=== PATIENT | female | born 1935 | race Caucasian/White ===

== ENCOUNTER 2017-05-07 06:55 | Day surgery (SDC) | payer MEDICARE, BC ==
[~2017-05-07] VITALS: Ht 163.8 cm; Wt 86.0 kg
[2017-05-07 07:22] VITALS: BP 134/91
[2017-05-07] MEDS ORDERED: LACTATED RINGERS 1,000 ML IV SCH (07:23)
[2017-05-07] MEDS ORDERED: BUPIVACAINE/PF 0.5% ONE (07:52)
[2017-05-07] MEDS ORDERED: PROTAMINE SULFATE 10 MG/ML, 5ML ONE (07:52)
[2017-05-07] MEDS ORDERED: THROMBIN 5,000 UNIT VIAL TP ONE (07:52)
[2017-05-07] MEDS ORDERED: HEPARIN 1,000 UNITS/ML, 10ML ONE (07:53)
[2017-05-07] MEDS ORDERED: MIDAZOLAM 1 MG/ML, 2ML ONE (07:54)
[2017-05-07] MEDS ORDERED: FENTANYL PF 250 MCG/5ML ONE (07:54)
[2017-05-07] MEDS ORDERED: SODIUM CHLORIDE 0.9% 1,000 ML IV SCH (08:11)
[2017-05-07] MEDS ORDERED: LYSI100010 PO (08:36)
[2017-05-07] MEDS ORDERED: normodyne PO (08:36)
[2017-05-07] MEDS ORDERED: HYDR-3342 PO (08:36)
[2017-05-07] MEDS ORDERED: ALLO100T30 PO (08:36)
[2017-05-07] MEDS ORDERED: IRON1TAB60 PO (08:36)
[2017-05-07] MEDS ORDERED: CHOL5000 PO (08:36)
[2017-05-07] MEDS ORDERED: ANAS1TAB3 PO (08:36)
[2017-05-07] MEDS ORDERED: LEVO125T63 PO (08:36)
[2017-05-07] MEDS ORDERED: AMLO10TA2 PO (08:36)
[2017-05-07] MEDS ORDERED: ATOR10TA PO (08:36)
[2017-05-07] MEDS ORDERED: FURO20TA3 PO (08:36)
[2017-05-07] MEDS ORDERED: GABA600T2 PO (08:36)
[2017-05-07] MEDS ORDERED: ONDANSETRON 2MG/ML, 2ML ONE (09:59)
[2017-05-07] MEDS ORDERED: NEOSTIGMINE 1 MG/ML, 10ML ONE (09:59)
[2017-05-07] MEDS ORDERED: PROPOFOL 10 MG/ML, 20ML ONE (09:59)
[2017-05-07] MEDS ORDERED: CEFAZOLIN 1,000 MG ONE (09:59)
[2017-05-07] MEDS ORDERED: DEXAMETHASONE 4 MG/ML, 1ML ONE (09:59)
[2017-05-07] MEDS ORDERED: SUCCINYLCHOLINE 20 MG/ML, 10ML ONE (09:59)
[2017-05-07] MEDS ORDERED: GLYCOPYRROLATE 0.2MG/1ML, 5ML ONE (09:59)
[2017-05-07] MEDS ORDERED: ROCURONIUM 10 MG/ML,10ML ONE (09:59)
[2017-05-07] MEDS ORDERED: HYDROcodone/APAP 7.5-325MG/15ML UDC PO PRN (10:00)
[2017-05-07] MEDS ORDERED: OXYcodone 5 MG/5 ML ORAL.SOL UDC PO PRN (10:00)
[2017-05-07] MEDS ORDERED: ACETAMINOPHEN 325 MG TABLET PO PRN (10:00)
[2017-05-07] MEDS ORDERED: HYDROmorphone 1 MG/ML, 1ML IV PRN (10:00)
[2017-05-07] MEDS ORDERED: ONDANSETRON 2MG/ML, 2ML IVPush PRN (10:00)
[2017-05-07] MEDS ORDERED: OXYcodone 5 MG/5 ML ORAL.SOL UDC ONE (10:47)
[2017-05-07] MEDS: FENTANYL PF 100 MCG/2ML IV PRN ×3 (10:52→11:22)
[2017-05-07] MEDS ORDERED: FENTANYL PF 100 MCG/2ML ONE (10:52)
== END 2017-05-07 13:45 ==
LOC: OUT 06:55
PROVIDERS: ATTEND Surgery Vascular Surgery
DX: I12.0 Hypertensive chronic kidney disease with stage 5 chronic kidney disease or end stage renal disease (principal); N18.6 End stage renal disease; Z88.5 Allergy status to narcotic agent
CPT/HCPCS: 36415; 36821; 49324; 80047; 93005; C1750; J0330; J0690; J1100; J1644; J2405; J2704; J2720; J3010; J3490; J7030; J2250; J2710

== ENCOUNTER 2019-05-27 05:39 | Day surgery (SDC) | payer MEDICARE, OTHER ==
[~2019-05-27] VITALS: Ht 162.6 cm; Wt 77.1 kg
[~2019-05-27 05:39] MED LIST: ALLO100T30 PO; AMLO10TA8 PO; ANAS1TAB49 PO; ATOR10TA PO; CARV6.252 PO; CELE200C PO; CHOL5000 PO; ERGO500017 PO; FOLI0.8T22 PO; FURO20TA3 PO; GABA600T7 PO; HYDR-3342 PO; IRON1TAB60 PO; LEVO125T63 PO; LYSI100010 PO; OMEP20TA62 PO; PHOSPHORUS BINDER PO; normodyne PO
[2019-05-27 06:58] VITALS: BP 136/65
[2019-05-27] MEDS ORDERED: LIDOCAINE 1%-EPI 1:100K, 20ML ONE (07:00)
[2019-05-27] MEDS ORDERED: BUPIVACAINE/PF 0.5% ONE (07:00)
[2019-05-27] MEDS ORDERED: SODIUM CHLORIDE 0.9% 1,000 ML IV SCH (07:00)
[2019-05-27] MEDS ORDERED: EPINEPHRINE 1 MG/ML, 1ML ONE (07:00)
[2019-05-27] MEDS ORDERED: FENTANYL PF 250 MCG/5ML ONE (07:18)
[2019-05-27] MEDS ORDERED: DEXAMETHASONE 4 MG/ML, 1ML ONE (07:18)
[2019-05-27] MEDS ORDERED: SUCCINYLCHOLINE 20 MG/ML, 10ML ONE (07:21)
[2019-05-27] MEDS ORDERED: PROPOFOL 10 MG/ML, 20ML ONE (07:52)
[2019-05-27] MEDS ORDERED: EPHEDRINE 50 MG/ML, 1ML ONE (07:52)
[2019-05-27] MEDS ORDERED: CEFAZOLIN 1,000 MG ONE (07:52)
[2019-05-27] MEDS ORDERED: ONDANSETRON 2MG/ML, 2ML IV PRN (09:00)
[2019-05-27] MEDS ORDERED: ONDANSETRON ODT 8 MG PO PRN (09:00)
[2019-05-27] MEDS ORDERED: PROMETHAZINE 12.5 MG SUPP PR PRN (09:00)
[2019-05-27] MEDS ORDERED: MIDAZOLAM 1 MG/ML, 2ML IV PRN (09:00)
[2019-05-27] MEDS ORDERED: EPHEDRINE 50 MG/ML, 1ML IVPush PRN (09:00)
[2019-05-27] MEDS ORDERED: PROMETHAZINE 25 MG/ML, 1ML IV PRN (09:00)
[2019-05-27] MEDS ORDERED: HALOPERIDOL 5 MG/ML IV PRN (09:00)
[2019-05-27] MEDS ORDERED: ALBUTEROL SULFATE 2.5 MG/3 ML NPPB PRN (09:00)
[2019-05-27] MEDS ORDERED: DIAZEPAM 5 MG/ML, 2ML IVPush PRN (09:00)
[2019-05-27] MEDS ORDERED: hydrALAzine 20 MG/ML, 1ML IV PRN (09:00)
[2019-05-27] MEDS ORDERED: FENTANYL PF 100 MCG/2ML IV PRN (09:00)
[2019-05-27] MEDS ORDERED: HYDROmorphone 2 MG/ML, 1ML IVPush PRN (09:00)
[2019-05-27] MEDS ORDERED: LABETALOL 5MG/ML, 20ML IV PRN (09:00)
[2019-05-27] MEDS ORDERED: MEPERIDINE/PF 25MG/ML,1ML IVPush PRN (09:00)
[2019-05-27] MEDS ORDERED: OXYcodone 5 MG/5 ML ORAL.SOL UDC PO PRN (09:00)
[2019-05-27] MEDS ORDERED: ONDANSETRON 2MG/ML, 2ML ONE (09:16)
[2019-05-27 09:41] LABS: INTERNATIONAL NORMALIZED RATIO 0.89 (0.93-1.1); PROTHROMBIN TIME 9.4 Seconds (9.6-11.5)
[2019-05-27 09:44] LABS: ALANINE AMINOTRANSFERASE 14 U/L (12-78); ALBUMIN 2.9 g/dL (3.4-5.0); ANION GAP 11 mmol/L (5-15); CALCIUM 8.7 mg/dL (8.5-10.1); CHLORIDE 91 mmol/L (98-107); CREATININE 6.49 mg/dL (0.55-1.02)
[2019-05-27 09:46] LABS: ALKALINE PHOSPHATASE 123 U/L (45-117)
== END 2019-05-27 12:10 | disposition home or self-care (01) ==
LOC: OUT 05:39
PROVIDERS: ATTEND Orthopaedic Surgery Orthopaedic Surgery of the Spine
DX: S32.030A Wedge compression fracture of third lumbar vertebra, initial encounter for closed fracture (principal); M89.8X8 Other specified disorders of bone, other site; M81.0 Age-related osteoporosis without current pathological fracture; I12.0 Hypertensive chronic kidney disease with stage 5 chronic kidney disease or end stage renal disease; N18.6 End stage renal disease; Z99.2 Dependence on renal dialysis; Z90.710 Acquired absence of both cervix and uterus; Z98.890 Other specified postprocedural states; Z88.0 Allergy status to penicillin; Z79.899 Other long term (current) drug therapy; Z88.5 Allergy status to narcotic agent; X58.XXXA Exposure to other specified factors, initial encounter; Y93.89 Activity, other specified; Y92.89 Other specified places as the place of occurrence of the external cause; Y99.8 Other external cause status
CPT/HCPCS: 22514; 36415; 72100; 80053; 85610; 85730; 88307; 88311; C1713; J0171; J0330; J0690; J1100; J2405; J2704; J3010; J3490; J7030